=== PATIENT | female | born 1960 | race American Indian/Alaskan Native ===

== ENCOUNTER 2019-04-16 07:59 | Day surgery (SDC) | payer MEDICARE ==
--- NOTE | 2019-04-16 07:27 | Short Stay Summary ---
Short Stay Documentation Date of service: 04/16/19 Narrative H&P: 58-year-old -0-1-4 with a history of postmenopausal bleeding. Endometrial biopsy was attempted in the office however was unsuccessful secondary to a stenotic cervical os. Tissue was not able to be obtained. The patient denies any pain or discomfort. She has not identified any precipitating event for her abnormal bleeding. Patient has been reassessed/reevaluated/re-examined. H&P has been reviewed. No interval changes. - History Principal diagnosis: Postmenopausal bleeding Past Medical History: hypertension Past Surgical History: Social history: - Allergies and Medications Current Medications: Allergies Sulfa (Sulfonamide Antibiotics) Allergy (Verified 04/14/19 16:46) Hives Home Medications Medication Instructions Recorded Confirmed Last Taken Type amLODIPine [Norvasc] 10 mg PO DAILY 03/21/19 04/14/19 Unknown History carvediloL [Coreg] 6.25 mg PO DAILY 03/21/19 04/14/19 Unknown History - Physical exam General appearance: no acute distress Integumentary: no rash HEENT: Atraumatic Lungs: Clear to auscultation Breasts: deferred Heart: Regular rate Gastrointestinal: normal Female Genitourinary: deferred Rectal Exam: deferred - Brief post op/procedure progress note Date of procedure: 04/16/19 Pre-op diagnosis: Postmenopausal bleeding Post-op diagnosis: same Procedure: Hysteroscopy Dilatation and curettage Anesthesia: JUAN CARLOSA Surgeon: RAYMOND REYNAGA Estimated blood loss: minimal Pathology: list (Endometrial curettings) Specimen disposition: to lab Condition: stable - Hospital course Hospital course: The patient was admitted the day of surgery underwent a hysteroscopy dilatation and curettage. Please see operative note for details of surgery. Postoperative course was uneventful. - Disposition Condition at discharge: Good Disposition: DC-01 TO HOME OR SELFCARE - Discharge Diagnoses (1) Postmenopausal bleeding Status: Acute (2) Cervical stenosis (uterine cervix) Status: Acute Short Stay Discharge Plan Activity: other (Pelvic rest for 1 week) Diet: regular Additional Instructions: Schedule follow-up with Dr. Reynaga in 2 weeks Prescriptions: Ibuprofen [Motrin] 800 mg PO Q8HR PRN #60 tablet PRN Reason: Pain, Mild (1-3) HYDROcodone/APAP 5-325 [[place] 5/325] 1 each PO Q6HR PRN #20 tablet PRN Reason: Pain
[2019-04-16] MEDS ORDERED: LACTATED RINGERS 1,000 ML ONE (09:14)
[2019-04-16] MEDS ORDERED: ONDANSETRON 4 MG/2 ML INJ IV PRN (09:18)
[2019-04-16] MEDS ORDERED: HYDROmorphone 1 MG/1 ML INJ IV PRN (09:18)
[2019-04-16] MEDS ORDERED: fentaNYL 100 MCG/2 ML INJ IV PRN (09:18)
--- NOTE | 2019-04-16 09:18 | Anesthesia Day of Surgery ---
Anesthesia Day of Surgery - Day of Surgery Patient Examined: Yes Patient H&P Reviewed: Yes Patient is NPO: Yes Beta Blockers: Yes Cardiac Clearance: Yes
[2019-04-16] MEDS ORDERED: propofoL 200 MG/20 ML VIAL IV ONE (09:48)
[2019-04-16] MEDS ORDERED: LIDOCAINE MPF (2%) 20 MG/1 ML VIAL 5 ML ONE (09:48)
[2019-04-16] MEDS ORDERED: MIDAZOLAM 2 MG/2 ML INJ IV NR (10:00)
[2019-04-16] MEDS ORDERED: LACTATED RINGERS 1,000 ML IV SCH (10:00)
[2019-04-16] MEDS ORDERED: SILVER NITRATE APPLICATOR 1 EA TP ONE (11:05)
[2019-04-16] MEDS ORDERED: ONDANSETRON 4 MG/2 ML INJ ONE (11:40)
[2019-04-16] MEDS ORDERED: dexAMETHasone 20 MG/5 ML VIAL ONE (11:40)
[2019-04-16] MEDS ORDERED: KETOROLAC 30 MG/1 ML INJ ONE (11:40)
[2019-04-16] MEDS ORDERED: SODIUM CHLORIDE 0.9% IRRIG SOLN 3000 ML IR ONE (11:50)
--- NOTE | 2019-04-16 11:54 | Operative Report ---
Operative Report Operative Report: Date of surgery: April 16, 2019 Preoperative diagnosis: Postmenopausal bleeding Postoperative diagnosis: Same as above Procedure: Hysteroscopy; dilatation and curettage Surgeon: Twyla Ovalles M.D. Anesthesia: Laryngeal mask anesthesia Estimated blood loss: Minimal Findings: Thickened endometrium with evidence of synechiae Pathology: Endometrial curettings Indication: 58-year-old -0-1-4 with a history of postmenopausal bleeding. Procedure: The patient was taken to the operating room and given LMA as anesthesia. The patient was prepped and draped in a normal sterile fashion. The patient was placed in high lithotomy position. A bivalve speculum was placed in the patient's vagina single-tooth tenaculum was placed on the anterior lip of the cervix. The cervical office was dilated with graduated dilators. The hysteroscope was inserted through the dilated cervical os. Clinical findings included a thickened endometrium with findings of synechiae in the midportion of the uterus. The endometrial surface was irregular. The hysteroscope was then removed. A sharp curettage of the endometrial surface was performed. Moderate amount of tissue was removed. No active bleeding at the conclusion of the case. All the vaginal instruments were removed atraumatically. The patient was successfully extubated and taken to the recovery room in stable condition.
[2019-04-16 12:36] VITALS: BP 130/80
--- NOTE | 2019-04-16 12:54 | Post Anesthesia Evaluation ---
- Post Anesthesia Evaluation Patient Participated: Yes Airway Patent: Yes Stable Respiratory Function: Yes Nausea/Vomiting: No Temp > 96.8F: Yes Pain Manageable: Yes Adequeate Hydration: Yes Anesthesia Complications: No
== END 2019-04-16 13:19 | disposition home or self-care (01) ==
LOC: OR 07:59
PROVIDERS: ATTEND Obstetrics & Gynecology
DX: N95.0 Postmenopausal bleeding (principal); N88.2 Stricture and stenosis of cervix uteri; I10 Essential (primary) hypertension; G43.909 Migraine, unspecified, not intractable, without status migrainosus; I25.10 Atherosclerotic heart disease of native coronary artery without angina pectoris; I50.9 Heart failure, unspecified; I11.0 Hypertensive heart disease with heart failure; E78.00 Pure hypercholesterolemia, unspecified; F17.210 Nicotine dependence, cigarettes, uncomplicated; M19.90 Unspecified osteoarthritis, unspecified site; Z98.890 Other specified postprocedural states; Z98.891 History of uterine scar from previous surgery; Z88.2 Allergy status to sulfonamides; Z88.8 Allergy status to other drugs, medicaments and biological substances; Z72.89 Other problems related to lifestyle; Z86.2 Personal history of diseases of the blood and blood-forming organs and certain disorders involving the immune mechanism; Z86.73 Personal history of transient ischemic attack (TIA), and cerebral infarction without residual deficits
CPT/HCPCS: 58558; 81025; 88305; A4217; J1100; J1170; J1885; J2250; J2405; J2704; J7120

== ENCOUNTER 2019-04-18 10:52 | Emergency (ER) | payer MEDICARE ==
[2019-04-18] MEDS ORDERED: SODIUM CHLORIDE 0.9% 1000 ML 1,000 ML IV ONE (11:32)
[2019-04-18 12:06] LABS: Basophils # (Auto) 0.1 K/mm3 (0.0-0.1); Basophils % (Auto) 1.1 % (0.0-1.8); Eosinophils # (Auto) 0.1 K/mm3 (0.0-0.4); Eosinophils % (Auto) 0.7 % (0.0-4.3); Hematocrit 40.5 % (30.3-42.9); Lymphocytes # (Auto) 3.7 K/mm3 (1.2-5.4); Lymphocytes % (Auto) 37.2 % (13.4-35.0); Mean Corpuscular HGB Conc 35 % (30-34); Mean Corpuscular Volume 96 fl (79-97); Monocytes # (Auto) 0.7 K/mm3 (0.0-0.8); Monocytes % (Auto) 6.7 % (0.0-7.3); Platelet Count 372 K/mm3 (140-440); Red Blood Count 4.23 M/mm3 (3.65-5.03); Red Cell Distribution Width 13.3 % (13.2-15.2)
[2019-04-18 12:10] LABS: Bilirubin,Urine NEG (Negative); Blood,Urine LG (Negative); Color,Urine Yellow (Yellow); Mucus,Urine FEW /HPF; Protein,Urine <15 mg/dL mg/dL (Negative); Urobilinogen,Urine < 2.0 mg/dL (<2.0)
[2019-04-18 12:11] LABS: RBC,Urine > 182.0 /HPF (0.0-6.0)
[2019-04-18 12:22] LABS: INR 0.92 (0.87-1.13); Partial Thromboplastin Time 28.4 Sec. (24.2-36.6)
[2019-04-18 13:18] LABS: Alanine Aminotransferase 12 units/L (7-56); Albumin 4.4 g/dL (3.9-5); BUN/Creatinine Ratio 14; Blood Urea Nitrogen 10 mg/dL (7-17); Calcium 9.9 mg/dL (8.4-10.2); Hemolysis Index 4
[2019-04-18 13:30] LABS: Bilirubin,Direct < 0.2 mg/dL (0-0.2)
--- NOTE | 2019-04-18 14:38 | Emergency Department Report ---
ED General Adult HPI - General Chief complaint: Vaginal Bleeding Stated complaint: HEAVY BLEEDING AFTER SURGERY Time Seen by Provider: 04/18/19 11:31 Source: patient Mode of arrival: Ambulatory Limitations: No Limitations - History of Present Illness Initial comments: This is a 4-year-old female with a history of dysfunctional uterine bleeding status post a therapeutic D&C and hysteroscopy on Sunday. She states that she did not have much bleeding after the procedure but today she had what she considered significant bleeding. She described using 4 pads. She is not weak or dizzy. She does not plan of shortness of breath. Has had no fever or c hills. She does not complain of abdominal pain. -: Gradual, hour(s) Associated Symptoms: denies other symptoms - Related Data Home Medications Medication Instructions Recorded Confirmed Last Taken amLODIPine [Norvasc] 10 mg PO DAILY 03/21/19 04/16/19 04/16/19 06:00 carvediloL [Coreg] 6.25 mg PO DAILY 03/21/19 04/16/19 04/16/19 06:00 Previous Rx's Medication Instructions Recorded Last Taken Type HYDROcodone/APAP 5-325 [[place] 1 each PO Q6HR PRN #20 tablet 04/16/19 Unknown Rx 5/325] Ibuprofen [Motrin] 800 mg PO Q8HR PRN #60 tablet 04/16/19 Unknown Rx cefUROXime [Ceftin] 250 mg PO Q12H #14 tablet 04/18/19 Unknown Rx Allergies Allergy/AdvReac Type Severity Reaction Status Date / Time shrimp Allergy Swelling Verified 04/16/19 09:30 Sulfa (Sulfonamide Allergy Hives Verified 04/14/19 16:46 Antibiotics) ED Review of Systems ROS: Stated complaint: HEAVY BLEEDING AFTER SURGERY Other details as noted in HPI Constitutional: denies: chills, fever Eyes: denies: eye pain, eye discharge, vision change ENT: denies: ear pain, throat pain Respiratory: denies: cough, shortness of breath, wheezing Cardiovascular: denies: chest pain, palpitations Endocrine: no symptoms reported Gastrointestinal: denies: abdominal pain, nausea, diarrhea Genitourinary: as per HPI, abnormal menses. denies: urgency, dysuria, discharge Musculoskeletal: denies: back pain, joint swelling, arthralgia Skin: denies: rash, lesions Neurological: denies: headache, weakness, paresthesias Psychiatric: denies: anxiety, depression Hematological/Lymphatic: denies: easy bleeding, easy bruising ED Past Medical Hx - Past Medical History Previous Medical History?: Yes Hx Hypertension: Yes Hx Heart Attack/AMI: Yes (2007) Hx Congestive Heart Failure: Yes Hx Arthritis: Yes Hx Headaches / Migraines: Yes (Migraines) - Surgical History Past Surgical History?: Yes - Social History Smoking Status: Current Every Day Smoker Substance Use Type: None - Medications Home Medications: Home Medications Medication Instructions Recorded Confirmed Last Taken Type amLODIPine [Norvasc] 10 mg PO DAILY 03/21/19 04/16/19 04/16/19 06:00 History carvediloL [Coreg] 6.25 mg PO DAILY 03/21/19 04/16/19 04/16/19 06:00 History HYDROcodone/APAP 5-325 [[place] 1 each PO Q6HR PRN #20 tablet 04/16/19 Unknown Rx 5/325] Ibuprofen [Motrin] 800 mg PO Q8HR PRN #60 tablet 04/16/19 Unknown Rx cefUROXime [Ceftin] 250 mg PO Q12H #14 tablet 04/18/19 Unknown Rx ED Physical Exam - General Limitations: No Limitations General appearance: alert, in no apparent distress - Head Head exam: Present: atraumatic, normocephalic - Eye Eye exam: Present: normal appearance. Absent: scleral icterus - ENT ENT exam: Present: mucous membranes moist - Neck Neck exam: Present: normal inspection - Respiratory Respiratory exam: Present: normal lung sounds bilaterally. Absent: respiratory distress - Cardiovascular Cardiovascular Exam: Present: regular rate, normal rhythm. Absent: systolic murmur, diastolic murmur, rubs, gallop - GI/Abdominal GI/Abdominal exam: Present: soft, normal bowel sounds. Absent: distended, tenderness, guarding, rebound, rigid - Extremities Exam Extremities exam: Present: normal inspection - Back Exam Back exam: Present: normal inspection - Neurological Exam Neurological exam: Present: alert, oriented X3, CN II-XII intact. Absent: motor sensory deficit - Psychiatric Psychiatric exam: Present: normal affect, normal mood - Skin Skin exam: Present: warm, dry, intact, normal color. Absent: rash ED Course Vital Signs 04/18/19 11:05 Temperature 97.4 F L Pulse Rate 66 Respiratory 16 Rate Blood Pressure 127/84 O2 Sat by Pulse 99 Oximetry - Reevaluation(s) Reevaluation #1: Patient had no signs of active bleeding. She was hemodynamically stable. She was appropriate for outpatient disposition. She was advised to follow-up on her urine culture. She will be given a prescription for Ceftin. 04/18/19 14:30 ED Medical Decision Making - Lab Data Result diagrams: 04/18/19 11:42 04/18/19 11:42 Laboratory Results - last 24 hr 04/18/19 04/18/19 04/18/19 11:42 11:42 11:42 WBC 10.0 RBC 4.23 Hgb 14.0 Hct 40.5 MCV 96 MCH 33 H MCHC 35 H RDW 13.3 Plt Count 372 Lymph % (Auto) 37.2 H [place] % (Auto) 6.7 Eos % (Auto) 0.7 Baso % (Auto) 1.1 Lymph # 3.7 [place] # 0.7 Eos # 0.1 Baso # 0.1 Seg Neutrophils % 54.3 Seg Neutrophils # 5.4 PT 12.4 INR 0.92 APTT 28.4 Sodium Potassium Chloride Carbon Dioxide Anion Gap BUN Creatinine Estimated GFR BUN/Creatinine Ratio Glucose Calcium Total Bilirubin Direct Bilirubin Indirect Bilirubin AST ALT Alkaline Phosphatase Total Protein Albumin Albumin/Globulin Ratio HCG, Qual Negative Urine Color Urine Turbidity Urine pH Ur Specific [place] Urine Protein Urine Glucose (UA) Urine Ketones Urine Blood Urine Nitrite Urine Bilirubin Urine Urobilinogen Ur Leukocyte Esterase Urine WBC (Auto) Urine RBC (Auto) U Epithel Cells (Auto) Urine Mucus Blood Type Antibody Screen 04/18/19 04/18/19 04/18/19 11:42 11:42 11:46 WBC RBC Hgb Hct MCV MCH MCHC RDW Plt Count Lymph % (Auto) [place] % (Auto) Eos % (Auto) Baso % (Auto) Lymph # [place] # Eos # Baso # Seg Neutrophils % Seg Neutrophils # PT INR APTT Sodium 136 L Potassium 3.5 L Chloride 97.6 L Carbon Dioxide 23 Anion Gap 19 BUN 10 Creatinine 0.7 Estimated GFR > 60 BUN/Creatinine Ratio 14 Glucose 88 Calcium 9.9 Total Bilirubin 0.30 Direct Bilirubin < 0.2 Indirect Bilirubin 0.1 AST 20 ALT 12 Alkaline Phosphatase 61 Total Protein 7.8 Albumin 4.4 Albumin/Globulin Ratio 1.3 HCG, Qual Urine Color Yellow Urine Turbidity Clear Urine pH 5.0 Ur Specific [place] 1.016 Urine Protein <15 mg/dl Urine Glucose (UA) Neg Urine Ketones Neg Urine Blood Lg Urine Nitrite Neg Urine Bilirubin Neg Urine Urobilinogen < 2.0 Ur Leukocyte Esterase Sm Urine WBC (Auto) 42.0 H Urine RBC (Auto) > 182.0 U Epithel Cells (Auto) 1.0 Urine Mucus Few Blood Type O POSITIVE Antibody Screen Negative Critical care attestation.: If time is entered above; I have spent that time in minutes in the direct care of this critically ill patient, excluding procedure time. ED Disposition Clinical Impression: Vaginal bleeding UTI (urinary tract infection) Qualifiers: Urinary tract infection type: site unspecified Hematuria presence: with hematur ia Qualified Code(s): N39.0 - Urinary tract infection, site not specified; R31.9 - Hematuria, unspecified Disposition: DC- TO HOME OR SELFCARE Is pt being admited?: No Does the pt Need Aspirin: No Condition: Stable Instructions: Dysfunctional Uterine Bleeding (ED), Urinary Tract Infection in Women (ED) Additional Instructions: Return any acute change or problem. Follow-up in your urine culture in 2 to 3 days. Follow-up with Dr. [place]. Return any acute change or problem. Prescriptions: cefUROXime [Ceftin] 250 mg PO Q12H #14 tablet Referrals: PRIMARY CAREMD [Primary Care Provider] - 3-5 Days RAYMOND REYNAGA MD [Staff Physician] - 2-3 Days Time of Disposition: 14:32
[2019-04-18 16:30] VITALS: BP 134/80
== END 2019-04-18 16:30 | disposition home or self-care (01) ==
LOC: ED 10:52
DX: N39.0 Urinary tract infection, site not specified (principal); N93.9 Abnormal uterine and vaginal bleeding, unspecified
CPT/HCPCS: 36415; 80048; 80076; 81001; 84703; 85025; 85610; 85730; 86850; 86900; 86901; 87086; 99283; J7030